=== PATIENT | male | born 1980 | race Hispanic/Latino ===

== ENCOUNTER 2018-01-21 07:48 | Inpatient (IN) | payer OTHER ==
[2018-01-21 08:13] VITALS: BMI 42.7
[2018-01-21] MEDS ORDERED: Oxycodone/Acetaminophen 5/325 mg Tab PO STA (08:14)
--- NOTE | 2018-01-21 08:20 | ED PDOC ---
Arrival/HPI - General Chief Complaint: Trauma Time Seen by Provider: 01/21/18 08:09 Historian: Patient - History of Present Illness Narrative History of Present Illness (Text): 01/21/18 08:22 37 year old male, with no significant past medical history, presents to the Emergency department complaining of right knee discomfort, swelling and abrasion s/p trip and fall off of a curb prior to arrival. Patient denies hitting his head or any loss of consciousness. Patient denies any dizziness or lightheadedness prior to the fall. Patient rates the pain as a 6/10 and is constant. Patient denies any fever, chills, vomiting, diarrhea, abdominal pain, chest pain, shortness of breath, other trauma or any other complaints. Patient presents to the Emergency department for medical evaluation. Time/Duration: Prior to Arrival Symptom Onset: Sudden Symptom Course: Unchanged Quality: Aching Activities at Onset: Light Context: Street Past Medical History - Provider Review Nursing Documentation Reviewed: Yes - Infectious Disease Hx of Infectious Diseases: None Family/Social History - Physician Review Nursing Documentation Reviewed: Yes Family/Social History: No Known Family HX Allergies/Home Meds Allergies/Adverse Reactions: Allergies No Known Allergies Allergy (Verified 01/21/18 08:13) Review of Systems - Physician Review All systems were reviewed & negative as marked: Yes - Review of Systems Constitutional: Normal. absent: Fevers Eyes: Normal ENT: Normal Respiratory: Normal. absent: SOB Cardiovascular: Normal. absent: Chest Pain Gastrointestinal: Normal. absent: Abdominal Pain, Diarrhea, Vomiting Genitourinary Male: Normal Musculoskeletal: Other (right knee pain s/p trip and fall) Skin: Other (abrasion to right knee) Neurological: Normal. absent: Dizziness Endocrine: Normal Hemo/Lymphatic: Normal Psychiatric: Normal Physical Exam Vital Signs Reviewed: Yes Vital Signs Temp Pulse Resp BP Pulse Ox 01/21/18 08:30 138/103 H 01/21/18 08:14 98.1 F 67 17 99 Temperature: Afebrile Blood Pressure: Normal Pulse: Regular Respiratory Rate: Normal Appearance: Positive for: Well-Appearing, Non-Toxic, Comfortable Pain Distress: None Mental Status: Positive for: Alert and Oriented X 3 - Systems Exam Head: Present: Atraumatic, Normocephalic Pupils: Present: PERRL Extroacular Muscles: Present: EOMI Conjunctiva: Present: Normal Neck: Present: Normal Range of Motion Respiratory/Chest: Present: Clear to Auscultation, Good Air Exchange. No: Respiratory Distress, Accessory Muscle Use Cardiovascular: Present: Regular Rate and Rhythm, Normal S1, S2. No: Murmurs Abdomen: No: Tenderness, Distention, Peritoneal Signs Upper Extremity: Present: Normal Inspection. No: Cyanosis, Edema Lower Extremity: Present: NORMAL PULSES, Normal ROM, Tenderness (right knee), Swelling (right knee), Neurovascularly Intact, Other (high-riding knee) Neurological: Present: GCS=15, CN II-XII Intact, Speech Normal Skin: Present: Warm, Dry, Normal Color, Abrasion (right knee). No: Rashes Psychiatric: Present: Alert, Oriented x 3, Normal Insight, Normal Concentration Medical Decision Making ED Course and Treatment: 01/21/18 08:21 Impression: 37 year old male presents to the Emergency department for right knee discomfort s/p trip and fall. Plan: -- CT of Knee -- Motrin -- Percocet -- Zofran -- X-ray of right knee -- Reassess and disposition Progress Notes: 01/21/18 09:34 X-ray of right knee reviewed by radiologist, shows: FINDINGS: BONES: Normal. No fracture. JOINTS: Small anterior osteophytes are seen arising from the patella. There is some soft tissue thickening anterior to the patellar tendon which may represent a prepatellar bursa. JOINT EFFUSION: None. OTHER FINDINGS: None. IMPRESSION: No evidence of fracture 01/21/18 10:27 CT of right knee reviewed by radiologist, shows: FINDINGS: There is a small fluid collection anterior to the patellar tendon consistent with a prepatellar bursa. This measures 10 mm in thickness. There is a calcification within the patellar tendon. There is no evidence of complete patellar tendon tear. There may be a partial tear on the left side just inferior to the patella. This is seen on image 38 series 3. There is no evidence of fracture. IMPRESSION: Probable partial tear of the left side of the patellar tendon. Small prepatellar bursa. No evidence of fracture 01/21/18 10:[address] Gao, who is aware and agrees with Emergency department management plan and requests to get a MRI performed for further evaluation. 01/21/18 12:38 MRI of right knee reviewed by radiologist, shows: FINDINGS: ANTERIOR CRUCIATE LIGAMENT:: Intact. POSTERIOR CRUCIATE LIGAMENT:: Intact. MEDIAL MENISCUS:: Intact. LATERAL MENISCUS:: Intact. MEDIAL COLLATERAL LIGAMENT:: Intact. LATERAL COLLATERAL LIGAMENT COMPLEX:: Intact. QUADRICEPS TENDON:: Intact. PATELLAR TENDON:: There is a complete tear of the patellar tendon with 17 mm of separation from the inferior border of the patella. There is a large amount of edema and fluid anterior to the patella and at the rupture site. . CARTILAGE:: Intact. JOINT FLUID:: Intact. OSSEOUS STRUCTURES:: Intact. OTHER FINDINGS: None. IMPRESSION: Ruptured patellar tendon 01/21/18 14:51 Upon reviewing the MRI results, Dr. Gao was paged. However, Dr. Boogie from Dr. Gao's office called back later and agreed that patient needs surgery and requested admission to medicine. After discussing management plan with patient, patient personally spoke to [facility] to determine his eligibility. As per patient, his insurance company denied coverage as the hospital is not under the network. Patient was informed that he has a medical emergency and immediate surgery is needed to be able to ambulate properly. Patient agreed with plan. was contacted, who expressed that she is in charge of picking consultants. As per request, Dr. Gao was taken off the case and Dr. Lin was consulted. Case was discussed with Dr. Lin, who is aware and agrees with Emergency department management plan. Dr. Lin informs evaluating patient around 5-6 o clock today. 01/21/18 15:[address] Gao, who was very upset about losing the case. Will contact Dr. Koo and Dr. Flanagan about situation. EKG reviewed, shows NSR at 68 bpm. Identical to previous EKG faxed over by [employer]. Chest X-ray reviewed by Dr. Thomas, shows normal interpretation. 01/21/18 15:18 - RAD Interpretation Radiology Orders: 01/21/18 08:14 KNEE WITHOUT CONTRAST RIGHT [CT] Stat KNEE W PATELLA RIGHT 3 VIEW [RAD] Stat 01/21/18 10:28 KNEE W/O CONTRAST RIGHT [MRI] Stat 01/21/18 14:29 CHEST PORTABLE [RAD] Stat Patient Intake Representative: Radiologist - Medication Orders Current Medication Orders: Discontinued Medications Ibuprofen (Motrin Tab) 800 mg PO STAT STA Stop: 01/21/18 08:15 Last Admin: 01/21/18 08:22 Dose: 800 mg MAR Pain/Vitals Document 01/21/18 08:22 [facility] (Rec: 01/21/18 08:22 [facility] [id number]) Pain Reassessment Is This A Pain ReAssessment? No Sleep Is patient sleeping during reassessment? No Presence of Pain Presence of Pain Yes Pain Scale Used Pain Scale Used Numeric Location Left, Right or Bilateral Right Pain Location Body Site Knee Intensity 6 Scale Used Numeric Ondansetron HCl (Zofran Odt) 8 mg PO STAT STA Stop: 01/21/18 08:15 Last Admin: 01/21/18 08:22 Dose: 8 mg Oxycodone/Acetaminophen (Percocet 5/325 Mg Tab) 2 tab PO STAT STA Stop: 01/21/18 08:15 Last Admin: 01/21/18 08:22 Dose: 2 tab MAR Pain Assessment Document 01/21/18 08:22 [facility] (Rec: 01/21/18 08:23 [facility] [id number]) Pain Reassessment Is this a pain reassessment? No Sleep Is patient sleeping during reassessment? No Presence of Pain Presence of Pain No Pain Scale Used Pain Scale Used Numeric Location Left, Right or Bilateral Right Pain Location Body Site Knee Description Intensity of Pain at present 6 - Scribe Statement The provider has reviewed the documentation as recorded by the Scribpatrice Juarez. All medical record entries made by the Ronnaibe were at my direction and personally dictated by me. I have reviewed the chart and agree that the record accurately reflects my personal performance of the history, physical exam, medical decision making, and the department course for this patient. I have also personally directed, reviewed, and agree with the discharge instructions and disposition. Disposition/Present on Arrival - Present on Arrival Any Indicators Present on Arrival: No History of DVT/PE: No History of Uncontrolled Diabetes: No Urinary Catheter: No History of Decub. Ulcer: No History Surgical Site Infection Following: None - Disposition Have Diagnosis and Disposition been Completed?: Yes Diagnosis: Patellar tendon rupture Disposition: HOME/ ROUTINE Disposition Time: 10:16 Patient Plan: Discharge Patient Problems: Current Active Problems Problem Status Onset Patellar tendon rupture Acute Condition: GOOD Discharge Instructions (ExitCare): Tendon Laceration (DC) Additional Instructions: Nolan Velasquez that you had this happen today. You tore your patellar tendon. You most probably will have to have surgery. Return to us if problems. Wear the kd wrap and the immobilizer at all times except to bathe. Do not weight bear, Use the crutches. Percocet is for really bad pain. ZofranODT is for the upset stomach the Percocet will cause. Motrin is for not so bad pain and inflammation. Duran- Dr. Oj Thomas Prescriptions: Ibuprofen [Motrin Tab] 800 mg PO TID #30 tab Ondansetron ODT [Zofran ODT] 8 mg PO TID #30 odt oxyCODONE/Acetaminophen [Percocet 5/325 mg Tab] 1 ea PO QID #20 tab Forms: [facility] (K[place]), SCHOOL NOTE, WORK NOTE
--- NOTE | 2018-01-21 09:29 | RAD ---
PROCEDURE: Right Knee Radiographs. HISTORY: Fall, Patella Injury COMPARISON: None. FINDINGS: BONES: Normal. No fracture. JOINTS: Small anterior osteophytes are seen arising from the patella. There is some soft tissue thickening anterior to the patellar tendon which may represent a prepatellar bursa. JOINT EFFUSION: None. OTHER FINDINGS: None. IMPRESSION: No evidence of fracture
--- NOTE | 2018-01-21 09:39 | CT ---
PROCEDURE: CT of the right knee without contrast HISTORY: Patella Tendon Injury? COMPARISON: TECHNIQUE: Radiation dose: Total exam DLP = 326 mGy-cm. This CT exam was performed using one or more of the following dose reduction techniques: Automated exposure control, adjustment of the mA and/or kV according to patient size, and/or use of iterative reconstruction technique. FINDINGS: There is a small fluid collection anterior to the patellar tendon consistent with a prepatellar bursa. This measures 10 mm in thickness. There is a calcification within the patellar tendon. There is no evidence of complete patellar tendon tear. There may be a partial tear on the left side just inferior to the patella. This is seen on image 38 series 3. There is no evidence of fracture. IMPRESSION: Probable partial tear of the left side of the patellar tendon. Small prepatellar bursa. No evidence of fracture
--- NOTE | 2018-01-21 12:33 | MRI ---
PROCEDURE: MRI Right Knee HISTORY: Pain. COMPARISON: Earlier CT and plain film TECHNIQUE: Multiecho multiplanar sequences were performed through the right knee. FINDINGS: ANTERIOR CRUCIATE LIGAMENT:: Intact. POSTERIOR CRUCIATE LIGAMENT:: Intact. MEDIAL MENISCUS:: Intact. LATERAL MENISCUS:: Intact. MEDIAL COLLATERAL LIGAMENT:: Intact. LATERAL COLLATERAL LIGAMENT COMPLEX:: Intact. QUADRICEPS TENDON:: Intact. PATELLAR TENDON:: There is a complete tear of the patellar tendon with 17 mm of separation from the inferior border of the patella. There is a large amount of edema and fluid anterior to the patella and at the rupture site. . CARTILAGE:: Intact. JOINT FLUID:: Intact. OSSEOUS STRUCTURES:: Intact. OTHER FINDINGS: None. IMPRESSION: Ruptured patellar tendon
--- NOTE | 2018-01-21 15:14 | RAD ---
HISTORY: PREOP COMPARISON: No prior. FINDINGS: LUNGS: No active pulmonary disease. PLEURA: No significant pleural effusion identified, no pneumothorax apparent. CARDIOVASCULAR: Normal. OSSEOUS STRUCTURES: No significant abnormalities. VISUALIZED UPPER ABDOMEN: Normal. OTHER FINDINGS: None. IMPRESSION: No active disease.
[2018-01-21] MEDS ORDERED: Bupivacaine 0.5% Inj(30mL) ONE (15:26)
[2018-01-21 15:54] LABS: ALB/GLOB RATIO 1.4 (1.1-1.8); ALBUMIN 4.4 g/dL (3.0-4.8); ALT/SGPT 50 U/L (7-56); AST/SGOT 36 U/L (17-59); BLOOD UREA NITROGEN 13 mg/dL (7-21); CALCIUM 8.8 mg/dL (8.4-10.5); GFR AFRICAN-AMERICAN > 60; GFR NON-AFRICAN AMERICAN > 60
[2018-01-21 15:57] LABS: BASO # 0.01 K/mm3 (0.0-2.0); BASO % 0.2 % (0.0-3.0); EOS # 0.1 (0.0-0.7); EOS % 1.6 % (1.5-5.0); GRAN # 3.89 (1.4-6.5); GRAN % 60.5 % (50.0-68.0); HEMOGLOBIN 14.3 g/dL (14.0-18.0); LYMPH # 1.7 (1.2-3.4); LYMPH % 26.7 % (22.0-35.0); MEAN CELL VOLUME 90.6 fl (80.0-105.0); MEAN CORPUSCULAR HEMOGLOBIN 31.4 pg (25.0-35.0); MEAN CORPUSCULAR HGB CONC 34.6 g/dl (31.0-37.0); MEAN PLATELET VOLUME 9.8 fl (7.0-11.0); MONO # 0.7 (0.1-0.6); RBC 4.56 10^6/uL (3.5-6.1); RED CELL DISTRIBUTION WIDTH 12.7 % (11.5-14.5); WHITE BLOOD COUNT 6.4 10^3/ul (4.5-11.0)
[2018-01-21 16:09] LABS: INR 1.14 (0.93-1.08)
[2018-01-21] MEDS ORDERED: Propofol 10 mg/ml Inj (20 ML) ONE ×2 (16:19→16:29)
[2018-01-21] MEDS ORDERED: Succinylcholine 200 mg/10 ml Inj IV ONE ×2 (16:19→16:20)
[2018-01-21] MEDS ORDERED: Midazolam 2 MG/2 ML VIAL ONE (16:43)
[2018-01-21] MEDS ORDERED: Vancomycin 1 g Inj ONE (16:52)
--- NOTE | 2018-01-21 17:27 | HP ---
DATE OF EXAM: 01/21/2018 HISTORY OF PRESENT ILLNESS: This 37-year-old male was examined in the [facility] ER in the presence of his . He presented with a chief complaint of right knee discomfort. He was on his way to work, tripped on a curb, fell on his right knee but denied any head trauma or loss of consciousness. He complains of right knee pain that was moderately severe in nature and the patient was unable to ambulate further. He came to the [facility] ER for further evaluation of the above. In the emergency room, he was evaluated with knee x-ray, knee CT, and knee MRI and found to have a complete tear of the patellar tendon with a 17 mm separation from his inferior border of the patella. A large amount of edema and fluid anterior to the patella was noted at the ruptured site. No knee fractures were noted and the patient is being evaluated by Orthopedics for further evaluation of the above. On further questioning of the patient, he has a history of chronic hypertension and takes Zestril 2.5 mg p.o. daily for this condition. His primary care physician is Dr. Abram Collier. On further questioning of the patient, he has had a right ankle fracture in his past that was treated by Dr. Jorge Lin from Orthopedics. REVIEW OF SYSTEMS: HEAD REVIEW: No headache or seizure. EYES REVIEW: No change in visual acuity. EARS REVIEW: No hearing loss. THROAT REVIEW: No swallowing difficulty. NECK REVIEW: No stiffness. CARDIAC REVIEW: Chronic hypertension, on Zestril. Denies any chest pain or dyspnea on exertion. PULMONARY: No cough. No hemoptysis. GI: No hematemesis or melena. : No dysuria. SKIN: No rash. VASCULAR: No claudication. PSYCHOLOGIC: No history of anxiety or depression. NEUROLOGIC: No seizure. No stroke. ALLERGIES: HE DENIES ANY ALLERGIES TO MEDICATION. SOCIAL HISTORY: He states he is a former smoker. No history of IV drug misuse. PAST MEDICAL HISTORY: History of right ankle fracture in the distant past. FAMILY HISTORY: Noncontributory. PHYSICAL EXAMINATION: VITAL SIGNS: Temperature 98.1, respirations 18, pulse 67, blood pressure 144/82 with a pulse ox of 98% on room air. HEENT: Head: Normocephalic, atraumatic. Eyes: No icterus. Throat: Clear. NECK: Supple. HEART: Regular, S1 and S2. No pathological rubs, murmurs, or gallops. LUNGS: Clear to auscultation. ABDOMEN: Obese, nontender. No palpable organomegaly. No rebound, no guarding, no tenderness. EXTREMITIES: No clubbing, no cyanosis, no edema. He has an Matheus bandage wrapped around his right knee. Legs warm to touch. SKIN: Without rash. NEUROLOGIC: Intact. PSYCHOLOGIC: Alert. VASCULAR: Legs warm to touch. LABORATORY DATA: Sodium 142, K 4.3, chloride 103, bicarb 27. BUN 13, creatinine 0.8. Random blood sugar 101. Bilirubin 0.7, AST 36, ALT 50, alk phos 70. White count 6400, hemoglobin 14.3, hematocrit 41.3, and platelets 192,000. Chest x-ray was reviewed. It shows no evidence of infiltrate, no pleural effusion, no pneumothorax, no infiltrate. An EKG reportedly shows a normal sinus rhythm with nonspecific ST-T wave changes. IMPRESSION: A 37-year-old gentleman status post a trip and fall with a complete tear of his patellar tendon and separation of his tendon from the inferior border of the patella. PLAN: The plan at present is to admit this patient. He will be seen in consultation by Dr. Jorge Lin from Orthopedics, who had seen the patient in the past and whom the patient and family have requested for orthopedic evaluation. He remains n.p.o. I will order Zestril 2.5 mg p.o. daily for hypertension management and a stat PT/PTT. Additional testing and interventions will be entertained by Dr. Lin from Orthopedics and based on clinical progress, additional testing and rehab will be ordered. All of the above was discussed in detail with the patient and , Lizzeth at the bedside. Case was reviewed with emergency room physician as well. All questions were answered. Greater than 75 minutes was spent in the care management, review of labs, orders, x-rays, MRIs, and discussion of this patient's management with the patient and ER physician. Laurence Flanagan MD MTDD
[2018-01-21] MEDS ORDERED: HYDROmorphone 0.5 mg/0.5 ml ISec IVP PRN (19:49)
[2018-01-21] MEDS ORDERED: Sodium Chloride 0.9% 1,000 ML IV SCH (20:00)
[2018-01-21] MEDS ORDERED: HYDROmorphone 1 mg/ml ISec ONE (20:10)
[2018-01-21] MEDS: ceFAZolin 2 GM in Sodium Chloride 0.9% 100 ML IVPB SCH (23:14)
[2018-01-22] MEDS: Morphine 4 mg/ml ISec IVP PRN ×2 (03:48→10:26)
[2018-01-22] MEDS: ceFAZolin 2 GM in Sodium Chloride 0.9% 100 ML IVPB SCH ×3 (05:55→21:19)
[2018-01-22 07:28] LABS: HEMOGLOBIN 13.1 g/dL (14.0-18.0); MEAN CELL VOLUME 91.6 fl (80.0-105.0); MEAN CORPUSCULAR HEMOGLOBIN 31.4 pg (25.0-35.0); MEAN CORPUSCULAR HGB CONC 34.3 g/dl (31.0-37.0); MEAN PLATELET VOLUME 9.8 fl (7.0-11.0); RBC 4.17 10^6/uL (3.5-6.1); WHITE BLOOD COUNT 8.1 10^3/ul (4.5-11.0)
--- NOTE | 2018-01-22 08:10 | OP ---
PROCEDURE DATE: 01/21/2018 PREOPERATIVE DIAGNOSES: Acute rupture of patellar tendon of the distal pole of the patella with osteophytes and tendinosis. POSTOPERATIVE DIAGNOSES: Acute rupture of patellar tendon of the distal pole of the patella with osteophytes and tendinosis. PROCEDURE: Primary open repair of the patellar tendon, right knee, with [employer]omet ToggleLoc with ZipLoop fixation device x2 utilizing #5 FiberWire sutures. SURGEON: Jorge Lin DO. TYPE OF ANESTHESIA: General endotracheal tube. DESCRIPTION OF PROCEDURE: The patient was taken to OR. Right lower extremity was prepped and draped in sterile fashion, given 2 g of Ancef. No tourniquet was utilized. We prepped and draped the right lower extremity from the groin to the ankle. Then, we did a skin incision just medial to the mid portion of the patella because he did have a tibial tubercle abrasion from the accident, but it just happened within 8 hours or so. It was consistently cleaned as best as possible with saline irrigation irritation. So, once the 8-inch incision was made over the right knee centering at the patella, going 4 inches above and 4 inches below the patellar mid portion. A new knife was used to go through the abundant adipose tissue and the tendon was readily explored, knowing that it was coming off the patellar tendon distal pole with some shredding of the tendon itself. After the peritenon was opened in such a fashion that we planned to close it postop, we debrided the tissue from the distal pole of the patella, made a rongeur debridement of the insertion site by removing the previous osteophytes that were developing from the tendinosis. There is also found to have a large lateral retinaculum tear, which eventually was repaired. Once the tendon was isolated at the patella, from distal to proximal, taking off the rough edges, and after we made a raw surface to the distal pole of the patella, we put the loop through the patella using medial and lateral strands and a combined one in the center. We had 4 strands of sutures, Krackow sutures on the periphery of the tendon and a baseball stitch in the center of the tendon, being careful not to irritate the sutures with the sharp needle. Now we had two mei of sutures in the patella, one medial and one lateral from the ZipLoop technology system from [employer]. Once the tendon was secured distally and the patella was cleaned up off its surface attachments, we put in drill holes, one medial and one laterally, and over-reamed it with a 4 mm reamer to allow us to pass the anchoring pin for the ZipLoop device to go into that over-reamed tunnel and anchoring in the [id number] portion of the patella, and then that was tightened and secured, and we got a good coaptation of the ruptured patellar tendon down to the raw bleeding bone, and to help give it some restraint postop, we put a cerclage loop of #5 Ethibond from the distal pole of the patella just distal to the last sutures that we used on the patellar tendon and the tibial tubercle had the horizontal hole. So, we passed a #5 FiberWire through the tibial tubercle, reaching horizontally and then brought them up anterior to the tunnel used for ZipLoop pins and suture, so that when he flexes his knee that sutures are not bothering his tibia. The sutures are in line with the patellar tendon going to be cerclage wire. Once this was done, we flexed the knee readily to 90 without the repair , so we did a deep repair of the retinaculum laterally and the peritenon anteriorly, subcutaneous and fascia with 2-0 Vicryl and 0 Vicryl, and the skin with a combination of 2-0 nylon and stainless steel verito. The patient was placed in a well positioned and molded cylinder cast leaving the ankle free, so he could put weight on it postop and secured the distal and the proximal ends of the cylinder cast with a cervical coller used to pad the upper and lower part of the cast .The patient was taken to recovery room in good condition. We gave the patient antibiotics preop and put vancomycin powder in the wound. Jorge Lin DO SOFIA
[2018-01-22 08:18] LABS: ALB/GLOB RATIO 1.4 (1.1-1.8); ALT/SGPT 35 U/L (7-56); AST/SGOT 32 U/L (17-59); BLOOD UREA NITROGEN 10 mg/dL (7-21); CALCIUM 8.2 mg/dL (8.4-10.5); GFR AFRICAN-AMERICAN > 60; GFR NON-AFRICAN AMERICAN > 60
[2018-01-22] MEDS: Enoxaparin 40 mg Syringe SC SCH (10:25)
--- NOTE | 2018-01-22 11:08 | CARD ---
APPROVED REPORT EKG Measurement Heart [id number] <Conclusion> Normal sinus rhythm Normal ECG
--- NOTE | 2018-01-22 11:28 | RAD ---
PROCEDURE: Bilateral Knee Radiographs. HISTORY: patellatendon rupture COMPARISON: None. FINDINGS: BONES: Right Knee: Postop changes right patella Left Knee: Normal. No fracture. JOINTS: Right Knee: Normal. No osteoarthritis. Left knee: Normal. No osteoarthritis. SOFT TISSUES: Right Knee: Normal. Left Knee: Normal. JOINT EFFUSION: Right Knee: None. Left Knee: None. OTHER FINDINGS: None. IMPRESSION: Postoperative changes right knee.
--- NOTE | 2018-01-23 02:13 | PN ---
DATE: 01/22/2018 SUBJECTIVE: This 37-year-old male was examined at his bedside in the presence of his , Lizzeth. The case was also reviewed in detail with nursing and Dr. Jorge Lin from Orthopedics. The patient is status post a successful repair of the complete right knee patellar rupture. He was taken successfully to the OR last evening where this was repaired, and the patient was put in a full leg cast and ordered to be out of bed to chair today with the initiation of physical therapy. At present, he is receiving Lovenox 40 mg subcu daily, morphine 4 mg IV every 4 hours p.r.n. severe pain which he just received recently, and his Zestril is continuing at 5 mg p.o. daily because of pain-induced hypertension. The patient at present denies any fever, chills, chest pain or shortness of breath, and he is cooperating with the nursing staff. PHYSICAL EXAMINATION: VITAL SIGNS: Temperature 99.1, respirations 18, pulse 74 and blood pressure 144/79, with a pulse ox of 97%. HEENT: Head normocephalic, atraumatic. Eyes: No icterus. Ears: Clear. Throat: Noninjected. NECK: Supple. HEART: Regular S1 and S2. LUNGS: Clear. ABDOMEN: Soft. EXTREMITIES: No edema. SKIN: No rash. VASCULAR: No claudication. PSYCHOLOGICAL: Alert and oriented x3. NEUROLOGICAL: Grossly intact. LABORATORY DATA: White count 8100, hemoglobin 13.1, hematocrit 38.2, platelets 180,000. Sodium 142, potassium 4.2, chloride 105, bicarb 25, BUN 10, creatinine 0.7, random blood sugar 131. Bilirubin 0.7, AST 32, ALT 35, alk phos 65. IMPRESSION: This is a 37-year-old male status post a trip and fall where he sustained a complete rupture of his right patellar tendon that was surgically repaired last evening and now requires the patient to be in a full-leg cast for a minimum of 2 to 4 more weeks as per Dr. Jorge Lin from Orthopedics. The patient will also require subcu Lovenox which I have asked the nursing staff to train both the patient and how to administer, and he will require physical therapy prior to plans for discharge. The patient was instructed on incentive spirometry, heart healthy soft bland diet, and will continue on Zestril 5 mg p.o. daily, morphine 4 mg IV every 4 hours p.r.n. severe pain and Lovenox 40 mg subcu daily. The patient will need to be monitored by Dr. Jorge Lin to determine safety for discharge. Greater than 35 minutes was spent in the care management, review of labs, orders, x-rays, and discussion of this patient's management with himself, his , nursing and Dr. Jorge Lin from Orthopedics. All questions were answered. Laurence Flanagan MD MTDD
--- NOTE | 2018-01-23 02:37 | PN ---
oob DATE: 01/22/2018 POSTOPERATIVE REPORT A 37-year-old male in room 578, bed 2, one day postop from right patellar tendon repair from acute rupture. He is presently oob but he is still in the cast. Complains of pain, but not undue. He is up out of bed. DVT prophylaxis with Lovenox and ambulate with a walker, weightbearing to tolerance and of course, no bending in that knee. He already is still in the cast. Also, he cannot bend or flex it, but he is allowed to walk and need assistance, when bed to chair somebody has to support that right leg, so it is not stressing the repair of the ruptured patellar tendon. He has no fever. Once he is cleared with the walker, we will send him home with commode and therapy. Jorge Lin DO SOFIA
[2018-01-23] MEDS: Enoxaparin 40 mg Syringe SC SCH (09:16)
--- NOTE | 2018-01-23 13:43 | PN ---
DATE: 01/23/2018 POSTOPERATIVE REPORT SUBJECTIVE: A 37-year-old male in room 568, bed 2. He is two days postop from acute ruptured patellar tendon of the right knee and is going to be planned to go to subacute rehab, so far it was to be [facility] in [place] with less pain. He is in a well-padded cylinder cast and no fever. We will plan on seeing him in approximately 2 weeks and we will window the cast to look at the wound. He will be going to rehab with a right-sided cylinder cast. We will follow up with [facility] that is where he goes. Jorge Lin DO MTDCyn
[2018-01-23 23:02] VITALS: RESP 20
[2018-01-24 09:44] VITALS: BP 147/84; PULSE 78; TEMP 98.5; O2SAT 99
--- NOTE | 2018-01-24 11:37 | DS ---
LOCATION: In room 578, bed 2. HOSPITAL COURSE: The patient underwent open repair of a patellar tendon rupture of his right knee on the day of admission, which was 01/21/2018. The patient has no fever. The pain is improving. He had very minimal therapy. He should have more therapy, but for some reason, it was not done, but he cannot put weight on the right leg where he has a well-padded cylinder cast and he needs to walk on the crutches in a wheelchair and home therapy. We are going to put him on one adult aspirin once a day for DVT prophylaxis, which has been shown to work as good as the Lovenox and that he did not get out of bed all day yesterday and the day before, he is at high risk of bedsores and he is overweight so we will get him out of the hospital so we will get him home and try to mobilize him more than he is getting in the hospital and he can put weight on that leg with a walker and I will see him in the office in 10 days. FINAL DIAGNOSIS: Patellar tendon rupture with acute repair on the day of injury. Jorge Lin DO
--- NOTE | 2018-01-24 11:56 | PN ---
DATE: 01/23/2018 SUBJECTIVE: This 37-year-old male was examined at his bedside in the presence of his , Lizzeth. This case was reviewed in detail with himself, his and nurse, Chavez Chavez, registered nurse. The patient was out of bed to chair. He is status post a repair of a ruptured right patellar tendon by Dr. Jorge Lin on the evening of 01/21/2018. The patient feels much better today off parenteral morphine, but remains weak and deconditioned and is unable to ambulate independently or transfer independently at present. The question that the patient and his proposed is the patient receiving adequate physical therapy prior to discharge to home and if he will be able to maneuver in his home should the go back to work or will this require subacute rehab therapy. This question is being presented to both Physical Therapy and Dr. Jorge Lin from Orthopedics. PHYSICAL EXAMINATION: GENERAL: On exam today, the patient denies any fever, chills, chest pain or shortness of breath. VITAL SIGNS: His temperature is 98.6, respirations 20, pulse 85 and blood pressure 129/76 with a pulse ox of 99%. HEENT: Head: Normocephalic, atraumatic. Eyes: No icterus. Ears: Clear. Throat: Noninjected. NECK: Supple. HEART: Regular S1, S2. LUNGS: Clear. ABDOMEN: Soft. EXTREMITIES: No edema. SKIN: Warm and dry. VASCULAR: Legs warm to touch. PSYCHOLOGICAL: Alert and oriented x3. NEURO: Grossly intact. LABORATORY DATA: White count 8100, hemoglobin 13.1, hematocrit 38.2, platelets 180,000. Sodium 142, K 4.2, chloride 105, bicarb 25, BUN 10, creatinine 0.7, random blood sugar 131. All liver function testing was normal including bilirubin 0.7, AST 32, ALT 35 and alk phos 65. IMPRESSION: A 37-year-old male status post a trip and fall where he sustained a ruptured right patellar tendon that required operating room repair with comorbidities of obesity, degenerative arthritis, chronic hypertension and now issues with mobility. PLAN: The plan at present is to start Colace 100 mg p.o. t.i.d. for constipation prevention. He continues on Lovenox 40 mg subcu daily and the patient and will need to be instructed by nursing regarding administration. The patient is ordered to have morphine 4 mg IV every 4 hours p.r.n. severe pain, Zestril 5 mg p.o. daily for hypertension. He is out of bed to chair. He is ordered to do incentive spirometry every 15 minutes hourly. There is an order for nasal O2 p.r.n. He is ordered to have a heart-healthy, low-sodium diet and physical therapy for ambulation safety. Once the issues of his ability to either be in his home alone and maneuvering around his apartment independently versus subacute rehab is addressed by Orthopedics and PT the patient will be readied for discharge and nursing may need to instruct the patient and how to administer Lovenox as well. Greater than 35 minutes was spent in the care and management, review of labs, orders, x-rays and counseling of the patient in the presence of his nurse while reaching out to Dr. Jorge Lin from Orthopedics regarding all of the above. All questions were answered at present. Laurence Flanagan MD SOF[facility]
[2018-01-24] MEDS: Morphine 4 mg/ml ISec IVP PRN (12:28)
[2018-01-24] MEDS: Enoxaparin 40 mg Syringe SC SCH (12:33)
--- NOTE | 2018-01-24 14:41 | DS ---
DATE OF EXAM: 01/24/2018 FINAL DIAGNOSES: Complete rupture of right patellar tendon, repaired; chronic hypertension; obesity; degenerative arthritis. DISPOSITION: Home with family providing 24 hours supervision and support. Follow up with Dr. Jorge Lin, Orthopedics. Follow up with Dr. Collier, PMD within 48 hours. The patient will have visiting nurse association and home physical therapy. DISCHARGE DIET: Heart-healthy. DISCHARGE MEDICATIONS: Zestril 5 mg p.o. daily, Ultracet one p.o. every 8 hours p.r.n. severe pain, #15 no refills; Ecotrin 325 mg p.o. daily; Colace 100 mg p.o. t.i.d. p.r.n. obstipation. This 37-year-old male was admitted to [facility] after a trip and fall where he sustained a complete rupture of his right patellar tendon that required surgical repair. This was performed on the evening of admission and the patient required postoperative hospitalization because of severe pain, immobility and need for physical therapy for safety. At the time of this dictation, he is cleared for discharge by Orthopedics. He has been instructed on safety for transfer, ambulation with walker and on and off the chair and off a bed and toilet. PHYSICAL EXAMINATION: His vital signs are temperature 98.5, respirations 20, pulse 78, blood pressure 147/84 with a pulse ox of 99% on room air. DATA: Discharge labs show white count 8100, hemoglobin 13.1, hematocrit 38.2, platelets 180,000. Sodium 142, K 4.2, chloride 105, bicarb 25, BUN 10, creatinine 0.7, random blood sugar 131. All liver function testing were normal including bilirubin 0.7, AST 32, ALT 35 and alkaline phosphatase 65. The patient has been cleared for discharge to home. He and his had been instructed on discharge orders and safety. He is instructed to do incentive spirometry every 1 hour and he was instructed regarding fall precautions. All of the above was discussed in detail with the patient, his at the bedside, Dr. Jorge Lin from Orthopedics and his nurse, Oscar, registered nurse. Greater than 35 minutes was spent in the care management, review of labs, orders and x-rays. All questions were answered. The patient was advised to follow up with PMD for additional monitoring of blood pressure, renewal of medications and to follow up with Dr. Jorge Lin as per his orders as well. Laurence Flanagan MD MTDD
== END 2018-01-24 17:14 | disposition home health service (06) | DRG 501 ==
LOC: ED 07:48 → ERH 14:32 → 5RSO 20:43
PROVIDERS: ADMIT Internal Medicine; ATTEND Internal Medicine
PROC: 0LQQ0ZZ Repair Right Knee Tendon, Open Approach (ICD-10-PCS; principal; 2018-01-21 16:00)
DX: S76.111A Strain of right quadriceps muscle, fascia and tendon, initial encounter (principal); Z68.41 Body mass index [BMI] 40.0-44.9, adult; I10 Essential (primary) hypertension; M19.90 Unspecified osteoarthritis, unspecified site; E66.9 Obesity, unspecified; M25.761 Osteophyte, right knee; W01.0XXA Fall on same level from slipping, tripping and stumbling without subsequent striking against object, initial encounter; Z87.891 Personal history of nicotine dependence; Y92.480 Sidewalk as the place of occurrence of the external cause